=== PATIENT | female | born 1995 | race Caucasian/White ===

== ENCOUNTER 2018-01-18 14:59 | Outpatient (RCR) | payer BC ==
[~2018-01-18 14:59] MED LIST: CIPR-214 PO; HYDR-653 PO; NORG1TAB20 PO; PRED20TA6 PO
[2018-01-18 15:18] LABS: PLATELET COUNT, AUTOMATED 236 K/uL (150-450)
[2018-01-19] MEDS ORDERED: IOPAMIDOL 76% 50 ML INFUS BTL 100 ML ONE (12:23)
--- NOTE | 2018-01-19 14:57 | RADIOLOGY IMAGING REPORT ---
FACILITY: [facility] PATIENT NAME: Sarah Garg : 1995 MR: [id number] V: [id number] EXAM DATE: ORDERING PHYSICIAN: TYLER JANE TECHNOLOGIST: Location: [facility] [place] Patient: Sarah Garg : 1995 Visit/Account:[id number] Date of Sevice: 01/19/2018 ABDOMEN/PELVIS WITH CONTRAST HISTORY: Left lower quadrant pain in right lower quadrant pain TECHNIQUE: Following administration of IV contrast contiguous axial images acquired through the abdom en/pelvis. Coronal and sagittal reformatting also performed.Dose Lowering Technique One of the following dose optimization techniques was utilized in the performance of this exam: Autom ated exposure control; adjustment of the mA and/or kV according to the patient's size; or use of an i terative reconstruction technique. Specific details can be referenced in the facility's radiology C T exam operational policy. CONTRAST: 75 mL Isovue-370 COMPARISON: December 25, 2015 FINDINGS: Visualized lung bases: Negative. Hepatobiliary: Negative. Spleen: Negative. Adrenals: Negative. Pancreas: Negative. Kidneys ureters or bladder: Negative. Genitalia: Negative. GI: The appendix is visualized and does not appear inflamed Vessels/spaces/nodes: There are scattered minimally prominent mesenteric lymph nodes in the right-si ded the abdomen although these appear relatively stable when compared the prior study and are apparen tly chronic Bones/soft tissues: Negative. Additional findings: None pertinent. IMPRESSION: There is scattered minimally prominent mesenteric lymph nodes right-sided the abdomen although these appear relatively stable when compared the prior study and are apparently chronic. The appendix is visualized does not appear inflamed Report Dictated By: Beba Albarran MD at 01/19/2018 1:21 PM Report E-Signed By: Beba Albarran MD at 01/19/2018 2:53 PM WSN:[id number]
[2018-02-02] MEDS ORDERED: BECL10.6 INH (11:27)
[2018-02-02] MEDS ORDERED: [UNRECOGNIZED DRUG - OTHER] PO (11:27)
[2018-02-02] MEDS ORDERED: HYOS-49 PO (11:27)
== END 2018-02-22 ==
LOC: CT 14:59
PROVIDERS: ATTEND Nurse Practitioner Family
DX: R10.32 Left lower quadrant pain (principal); R10.31 Right lower quadrant pain; R10.11 Right upper quadrant pain; R19.7 Diarrhea, unspecified; K21.9 Gastro-esophageal reflux disease without esophagitis
CPT/HCPCS: 36415; 74177; 83630; 85025; 86140; 87045; 87177; 87493; Q9967; 82040; 82247; 82310; 82374; 82435; 82565; 82947; 84075; 84132; 84155; 84295; 84450; 84460; 84520